=== PATIENT | male | born 1975 | race Caucasian/White ===

== ENCOUNTER → 2019-07-27 | Outpatient (CLI) | payer BC ==
[~2019-07-27] MED LIST: ALBUTEROL SULF 0.083% NEB SOLN 3 ML NEB ONE
--- NOTE | 2019-08-06 03:49 | Pulmonary Function Test ---
DATE OF STUDY: 07/27/2019 REFERRING PHYSICIAN: Jim Tovar MD SPIROMETRY: Spirometry demonstrates normal findings. FEV1 was 3.61 L or 95% predicted and FVC was 4.42 L or 92% predicted in setting of normal FEV1 over FVC ratio. After bronchodilator administration, there was no statistically significant change in spirometry. DIFFUSION CAPACITY: Patient with normal diffusion capacity of 28.75 mL per mmHg per minute or 93.3% predicted. SUMMARY: Normal spirometry and normal diffusion capacity. MD KIMBERLY Ragland/MODL /[id number]
== END ==
LOC: RESP 10:34
PROVIDERS: ATTEND Internal Medicine Critical Care Medicine
DX: R05 Cough (principal); J42 Unspecified chronic bronchitis; J45.909 Unspecified asthma, uncomplicated; G47.33 Obstructive sleep apnea (adult) (pediatric); Z68.45 Body mass index [BMI] 70 or greater, adult
CPT/HCPCS: 94060; 94640; 94729

== ENCOUNTER → 2019-07-30 | Outpatient (CLI) | payer BC ==
--- NOTE | 2019-08-06 03:54 | Pulmonary Function Test ---
DATE OF STUDY: 07/30/2019 REFERRING PHYSICIAN: Jim Tovar MD LUNG VOLUMES: Lung volumes demonstrated no evidence of restriction with normal total lung capacity of 5.43 L or 80.8% predicted. Lung volumes performed by nitrogen washout method. Lung volumes previously performed on July 27, 2019, probably therefore was repeated on this day. SUMMARY: Normal lung volumes. Please correlate to July 27, 2019 pulmonary function testing. Jim Tovar MD GMN/MODL /[id number]
== END ==
LOC: RESP 15:54
PROVIDERS: ATTEND Family Medicine
DX: R05 Cough (principal); J42 Unspecified chronic bronchitis; G47.33 Obstructive sleep apnea (adult) (pediatric); J45.909 Unspecified asthma, uncomplicated; Z68.45 Body mass index [BMI] 70 or greater, adult
CPT/HCPCS: 94727

== ENCOUNTER → 2024-07-21 | Day surgery (SDC) | payer OTHER ==
[~2024-07-21] MED LIST changes: -ALBUTEROL SULF 0.083% NEB SOLN 3 ML NEB ONE; +ASPIRIN EC81 MG PO; +ATORVASTATIN CA20 MG PO; +FLONASE ALLERG9.9 ML INH; +HYDROCHLOROTHIA25 MG PO; +KETAMINE 50MG/5ML SYR ONE; +LABETALOL HCL 20 ML ONE; +LIDOCAINE HCL 1% 2 ML AMP ONE; +LIDOCAINE HCL 2% LOCAL INJ 5 ML SDV VIAL INJ ONE; +MOUNJARO7.5 MG/0.5; +MULTI-VITAMIN1 EACH PO; +NEURONTIN400 MG PO; +NIFEDIPINE ER30 M1 PO; +PROPOFOL IV EMULSION 10 MG/ML 20 ML VIAL ONE; +PROPOFOL IV EMULSION 50 ML IV ONE; +XYZAL5 MG PO; +ZESTRIL40 MG PO
[2024-07-21] MEDS: LACTATED RINGER'S 1,000 ML ONE (10:40)
[2024-07-21 12:35] VITALS: BP 127/86; PULSE 70; RESP 18; O2SAT 99
== END | disposition home or self-care (01) ==
LOC: OR 09:16
PROVIDERS: ATTEND Internal Medicine Gastroenterology
DX: Z12.11 Encounter for screening for malignant neoplasm of colon (principal); K63.5 Polyp of colon; K64.8 Other hemorrhoids; G47.33 Obstructive sleep apnea (adult) (pediatric); E66.01 Morbid (severe) obesity due to excess calories; I10 Essential (primary) hypertension; E11.9 Type 2 diabetes mellitus without complications; Z01.810 Encounter for preprocedural cardiovascular examination; Z79.82 Long term (current) use of aspirin; Z79.85 Long-term (current) use of injectable non-insulin antidiabetic drugs; Z79.899 Other long term (current) drug therapy; Z68.41 Body mass index [BMI] 40.0-44.9, adult; Z87.891 Personal history of nicotine dependence
CPT/HCPCS: 45385; 88305; 93005; J2003 ×2; J2704 ×2; J3490; J7121; 45378